=== PATIENT | female | born 2000 | race Caucasian/White ===

== ENCOUNTER 2019-05-23 12:55 | Outpatient (CLI) | payer BC ==
--- NOTE | 2019-05-23 14:00 | ULT ---
Exam: Thyroid ultrasound HISTORY: Goiter. COMPARISON: none FINDINGS: Homogeneous echotexture of the thyroid gland. No solid masses Thyroid isthmus measures 0.3 cm Right thyroid lobe measures 4.5 x 1.7 x 1.5 cm Left thyroid lobe measures to 3.2 x 1.4 x 0.8 cm IMPRESSION: Unremarkable thyroid ultrasound.
== END 2019-05-23 12:56 | disposition home or self-care (01) ==
LOC: SCSULT 12:55
PROVIDERS: ATTEND Specialist
DX: E04.9 Nontoxic goiter, unspecified (principal)
CPT/HCPCS: 76536